=== PATIENT | male | born 1955 | race Asian ===

== ENCOUNTER 2020-01-21 12:50 | Emergency (ER) | payer MEDICARE ==
[~2020-01-21] VITALS: Ht 175.3 cm; Wt 85.0 kg
[~2020-01-21 12:50] MED LIST: MIDAZOLAM 1 MG/ML, 5ML ONE; ROCURONIUM 10 MG/ML,10ML ONE
[2020-01-21] MEDS ORDERED: NALOXONE 0.4 MG/ML, 1ML ONE (13:18)
[2020-01-21] MEDS ORDERED: CODE BLUE RESPONSE XX ONE (13:30)
[2020-01-21] MEDS ORDERED: PLEASE ENTER HEIGHT AND WEIGHT MC SCH (13:30)
[2020-01-21] MEDS ORDERED: SODIUM CHLORIDE FLUSH 10ML SYR IVF ONE (13:30)
[2020-01-21] MEDS ORDERED: LABETALOL 5MG/ML, 20ML ONE (13:30)
[2020-01-21 13:38] LABS: BASOPHILS # (AUTO) 0.04 x10^3/uL (0-0.1); BASOPHILS % (AUTO) 1 % (0-1); EOSINOPHILS # (AUTO) 0.08 x10^3/uL (0-0.4); EOSINOPHILS % (AUTO) 1 % (1-7); LYMPHOCYTES # (AUTO) 0.91 x10^3/uL (1-3.4); LYMPHOCYTES % (AUTO) 15 % (22-44); MD NO; MEAN CORPUSCULAR HEMOGLOBIN 30.8 pg (27.5-34.5); MEAN CORPUSCULAR HGB CONC 33.8 g/dL (33.2-36.2); MEAN PLATELET VOLUME 8.2 fL (7.4-10.4); MONOCYTES # (AUTO) 0.24 x10^3/uL (0.2-0.8); MONOCYTES % (AUTO) 4 % (2-9); NEUTROPHILS # (AUTO) 4.99 x10^3/uL (1.8-6.8); NEUTROPHILS % (AUTO) 80 % (42-75); PLATELET COUNT 291 x10^3/uL (130-400); RED BLOOD COUNT 5.08 x10^6/uL (4.38-5.82); RED CELL DISTRIBUTION WIDTH 13.1 % (9.4-14.8)
[2020-01-21 13:40] LABS: ALANINE AMINOTRANSFERASE 66 U/L (12-78); ALBUMIN 3.9 g/dL (3.4-5.0); ANION GAP 7 mmol/L (5-15); CALCIUM 9.3 mg/dL (8.5-10.1); CHLORIDE 103 mmol/L (98-107); CREATININE 1.07 mg/dL (0.7-1.3)
[2020-01-21 13:41] LABS: INTERNATIONAL NORMALIZED RATIO 0.97 (0.93-1.1); PROTHROMBIN TIME 10.3 Seconds (9.6-11.5)
[2020-01-21 13:45] LABS: ALKALINE PHOSPHATASE 58 U/L (45-117); BILIRUBIN,TOTAL 0.8 mg/dL (0.2-1.0); TOTAL PROTEIN 8.1 g/dL (6.4-8.2); TROPONIN I < 0.015 ng/mL (0.000-0.045)
[2020-01-21] MEDS ORDERED: LABETALOL 250 MG in SODIUM CHLORIDE 0.9% 200 ML IV PRN (14:00)
--- NOTE | 2020-01-21 14:23 | NUR ---
PT RESP ARREST IN ROOM 4, TX TO TR02, WOKE UP BEFORE INTUBATION. [address] ON MONITOR. STABLE, A&OX4 GCS 15, SPEAKING IN FULL SENTENCES. 1410 LABETALOL GTT STARTED. SR ON MONITOR 60S. HYPERTENSIVE. GOAL BP 160 SYSTOLIC. PT REPORS MONCADA, STATES FEELS LIKE SOMETHING IS WRONG
[2020-01-21] MEDS ORDERED: OMNIPAQUE 350 MG/ML, 100ML BOTTLE ONE (14:33)
--- NOTE | 2020-01-21 14:37 | NUR ---
PTTO BE TX TO [facility]. TEE IN ROOM TO SPEAK W/ PT AND .
--- NOTE | 2020-01-21 14:41 | NUR ---
CT: THROMBUS IN THE MID BASILAR ARTERY WITH VERY SLOW FLOW IN THE RIGHT VERTEBRAL AND LOWER BASILAR ARTERY.
--- NOTE | 2020-01-21 14:41 | NUR ---
PER [facility] PERMISSIVE HTN TO 220 SYSTOLIC. NEURO ON ROBOT SCREEN TO EVAL PT.
--- NOTE | 2020-01-21 15:11 | NUR ---
RECTAL ASA REQ FROM PHARM.
[2020-01-21 15:23] VITALS: BP 186/91
--- NOTE | 2020-01-21 15:24 | NUR ---
BP GOAL 200/120 PER MARY, NEURO.
--- NOTE | 2020-01-21 15:28 | NUR ---
report to [facility]. as
[2020-01-21] MEDS ORDERED: ASPIRIN 300 MG SUPP PR ONE (15:30)
--- NOTE | 2020-01-21 15:45 | NUR ---
REPORT TO [facility]. PT TX W/ ALL BELONGINGS. AND .
== END 2020-01-21 15:56 ==
LOC: ED 14:56
DX: I65.1 Occlusion and stenosis of basilar artery (principal); R41.82 Altered mental status, unspecified; I16.1 Hypertensive emergency; I10 Essential (primary) hypertension; E11.9 Type 2 diabetes mellitus without complications; R00.1 Bradycardia, unspecified
CPT/HCPCS: 36415; 70450; 70496; 70498; 71045; 80053; 83880; 84484; 85025; 85610; 85730; 93005; 96365; 99285; J2250; J7050; Q9967